=== PATIENT | female | born 1990 | race Caucasian/White ===

== ENCOUNTER 2020-02-28 22:31 | Emergency (ER) | payer MEDICAID ==
--- NOTE | 2020-02-28 22:59 | EDM.PDOC ---
ED HPI GENERAL MEDICAL PROBLEM - General Chief Complaint: ENT Problem Stated Complaint: GENERAL Time Seen by Provider: 02/28/20 22:40 Source of Information: Reports: Patient History Limitations: Reports: No Limitations - History of Present Illness INITIAL COMMENTS - FREE TEXT/NARRATIVE: [facility] with chief complaint of numbness that has been intermittent for the last 5 days since seeing a chiropractor and being adjusted. She states the numbness is just to the side of her left ear for about 1 to 2 cm in area on the scalp. She states the pain is about a 3 out of 10 but states it feels numb to that area she just got worried about it and states she would not be able to sleep tonight till she got checked out. She has not seen a primary care provider. She has taken one 800 mg Motrin and a couple of Excedrin which did not help. She has no other complaints at this time Duration: Day(s): Location: Reports: Head Quality: Reports: Burning Severity: Mild Improves with: Reports: Medication Associated Symptoms: Reports: No Other Symptoms Treatments [employer]: Reports: NSAIDS Left Ear Pain Score (Numeric/FACES): 3 - Related Data Allergies Allergy/AdvReac Type Severity Reaction Status Date / Time cashew nut Allergy Other Verified 02/28/20 22:52 ciprofloxacin Allergy Hives Verified 02/28/20 22:52 erythromycin base Allergy Hives Verified 02/28/20 22:52 [From Pediazole] Penicillins Allergy Hives Verified 02/28/20 22:52 sulfisoxazole Allergy Hives Verified 02/28/20 22:52 [From Pediazole] Home Meds: Home Meds . [No Known Home Meds] 02/28/20 [History] ED ROS ENT - Review of Systems Review Of Systems: See Below (Patient gets no signs or symptoms of any CVA TIA dental abscess or infection or mastoiditis) Constitutional: Reports: No Symptoms. Denies: Fever, Chills, Malaise, Weakness , Fatigue HEENT: Denies: Dental Pain, Ear Discharge, Ear Pain, Eye Discharge, Eye Pain, Nose Pain, Rhinitis, Sinus Problem, Throat Pain, Throat Swelling, Vertigo, Vision Change Respiratory: Reports: No Symptoms Cardiovascular: Reports: No Symptoms Endocrine: Reports: No Symptoms GI/Abdominal: Reports: No Symptoms : Reports: No Symptoms Musculoskeletal: Reports: No Symptoms Skin: Reports: No Symptoms Neurological: Reports: Numbness, Paresthesia, Pre-Existing Deficit, Seizure, Tremors. Denies: Confusion, Dizziness, Headache, Syncope, Tingling, Trouble Speaking, Difficulty Walking, Weakness Psychiatric: Reports: No Symptoms Hematologic/Lymphatic: Reports: No Symptoms Immunologic: Reports: No Symptoms ED EXAM, ENT - Physical Exam Exam: See Below Exam Limited By: No Limitations General Appearance: Alert, WD/WN, No Apparent Distress Eye Exam: Bilateral Eye: EOMI, PERRL Ears: Normal External Exam, Normal Canal, Hearing Grossly Normal, Normal TMs, Other (There is no noted mastoid swelling mastoid tenderness erythema or calor over the area) Nose: Normal Inspection, Normal Mucousa, No Blood Mouth/Throat: Normal Inspection, Normal Gums, Normal Lips, Normal Oropharynx, Normal Teeth Head: Atraumatic, Normocephalic, Other (Patient points to the area just posterior to the ear on the left side of the scalp there is no noted rashes or erythema no signs or symptoms of any secondary infection) Neck: Normal Inspection, Supple, Non-Tender, Full Range of Motion. No: Limited Range of Motion, Lymphadenopathy (L), Lymphadenopathy (R) Respiratory/Chest: No Respiratory Distress, Lungs Clear, Normal Breath Sounds, No Accessory Muscle Use, Chest Non-Tender Cardiovascular: Normal Peripheral Pulses, Regular Rate, Rhythm, No Edema, No Gallop, No JVD Extremities: Normal Inspection, Normal Range of Motion, Non-Tender Neurological: Alert, Oriented, CN II-XII Intact, Normal Cognition, Normal Gait, No Motor/Sensory Deficits Psychiatric: Normal Affect, Normal Mood Skin: Warm, Dry, Intact, Normal Color, No Rash Lymphatic: No Adenopathy Course - Vital Signs Text/Narrative:: Patient gave no signs or symptoms of secondary URI symptoms but may present light shingles there is no signs or symptoms of secondary folliculitis or traction folliculitis Patient was educated to follow-up with a primary care provider take 800 mg of Motrin every 8 hours and apply ice to the area she may also use her over-the- counter hydrocortisone which she uses for psoriasis to the area of her ear and apply it over the area to see if it helps Last Recorded V/S: Last Vital Signs Temp 36.8 C 02/28/20 22:48 Pulse 96 02/28/20 22:48 Resp 18 02/28/20 22:48 BP 134/96 H 02/28/20 22:48 Pulse Ox 97 02/28/20 22:48 Departure - Departure Time of Disposition: 22:55 Disposition: Home, Self-Care 01 Condition: Good Clinical Impression: Neuralgia involving scalp - Discharge Information *PRESCRIPTION DRUG MONITORING PROGRAM REVIEWED*: No *COPY OF PRESCRIPTION DRUG MONITORING REPORT IN PATIENT WENDY: No Instructions: Neuropathic Pain Referrals: PCP,None [Primary Care Provider] - Forms: ED Department Discharge Additional Instructions: Follow-up with your primary care provider in the next 24 to 48 hours Return to the emergency room if anything changes Apply ice to the area is much as tolerated usually 1 hour on 1 hour off you may take ibuprofen 800 mg 1 every 8 hours for the next 2 to 3 days as needed you may add Tylenol 1 tab every 4-6 hours as needed Sepsis Event Note - Evaluation Sepsis Screening Result: No Definite Risk - Focused Exam Vital Signs: Vital Signs Temp Pulse Resp BP Pulse Ox 02/28/20 22:48 36.8 C 96 18 134/96 H 97 Date Exam was Performed: 02/28/20 Time Exam was Performed: 23:00 - Problem List & Annotations (1) Neuralgia involving scalp SNOMED Code(s): 31160327, 088182714 Code(s): M79.2 - NEURALGIA AND NEURITIS, UNSPECIFIED Status: Acute Current Visit: Yes
== END 2020-02-28 23:04 | disposition home or self-care (01) ==
LOC: VM.ED 22:31
DX: M54.81 Occipital neuralgia (principal); Z91.018 Allergy to other foods; Z88.1 Allergy status to other antibiotic agents; Z88.0 Allergy status to penicillin; Z88.2 Allergy status to sulfonamides
CPT/HCPCS: 99283